=== PATIENT | female | born 1975 | race Asian ===

== ENCOUNTER → 2017-10-27 | Outpatient (CLI) | payer OTHER | END | disposition home or self-care (01) | LOC: CFH 14:52 | PROVIDERS: ATTEND Physician Assistant | DX: S83.522A Sprain of posterior cruciate ligament of left knee, initial encounter (principal); M25.462 Effusion, left knee; X58.XXXA Exposure to other specified factors, initial encounter; Y93.89 Activity, other specified; Y92.89 Other specified places as the place of occurrence of the external cause; Y99.8 Other external cause status ==

== ENCOUNTER → 2018-03-16 | Outpatient (CLI) | payer OTHER ==
[2018-03-16 09:00] LABS: CHOL/HDL RATIO 3.9; LDL/HDL RATIO 2.4 (0.5-3.0)
[2018-03-16 09:06] LABS: HEMOGLOBIN A1C 5.5 % (4.2-6.3)
== END | disposition home or self-care (01) ==
LOC: LAB 08:30
PROVIDERS: ATTEND Family Medicine
DX: Z13.1 Encounter for screening for diabetes mellitus (principal); Z13.220 Encounter for screening for lipoid disorders
CPT/HCPCS: 36415; 80061; 83036

== ENCOUNTER → 2020-06-10 | Outpatient (CLI) | payer OTHER | END | disposition home or self-care (01) | LOC: CFH 10:35 | PROVIDERS: ATTEND Family Medicine | DX: N63.22 Unspecified lump in the left breast, upper inner quadrant (principal) | CPT/HCPCS: 76642; 77062; 77066; G0279 ==

== ENCOUNTER 2020-06-14 07:03 | Outpatient (CLI) | payer OTHER ==
[2020-06-14] MEDS ORDERED: LIDOCAINE 1%-EPI 1:100K, 20ML ONE (07:30)
[2020-06-14] MEDS ORDERED: LIDOCAINE 1%, 20ML ONE (07:30)
== END 2020-06-14 23:59 | disposition home or self-care (01) ==
LOC: CFH 07:03
PROVIDERS: ATTEND Family Medicine
DX: N63.24 Unspecified lump in the left breast, lower inner quadrant (principal); C50.312 Malignant neoplasm of lower-inner quadrant of left female breast; Z17.1 Estrogen receptor negative status [ER-]
CPT/HCPCS: 19083; 19084; 77065; 88305; 88360; J3490

== ENCOUNTER → 2020-06-26 | Outpatient (CLI) | payer OTHER ==
[~2020-06-26] MED LIST: GADOTERATE 10 MMOL/20 ML VIAL ONE
== END | disposition home or self-care (01) ==
LOC: CFH 10:30
PROVIDERS: ATTEND Surgery
DX: C50.212 Malignant neoplasm of upper-inner quadrant of left female breast (principal); N63.22 Unspecified lump in the left breast, upper inner quadrant
CPT/HCPCS: 77049; A9575; C8908

== ENCOUNTER → 2020-07-04 | Outpatient (CLI) | payer OTHER ==
[~2020-07-04] MED LIST changes: +ASCO100018 PO; +CHOL10003 PO; -GADOTERATE 10 MMOL/20 ML VIAL ONE; +ONE A DAY MVT PO
== END | disposition home or self-care (01) ==
LOC: CVU 14:07
PROVIDERS: ATTEND Internal Medicine Hematology & Oncology
DX: I08.8 Other rheumatic multiple valve diseases (principal); C50.812 Malignant neoplasm of overlapping sites of left female breast
CPT/HCPCS: 93306; 93356

== ENCOUNTER → 2020-07-05 | Outpatient (CLI) | payer OTHER | END | disposition home or self-care (01) | LOC: STAR 09:18 | PROVIDERS: ATTEND Surgery | DX: Z20.822 Contact with and (suspected) exposure to COVID-19 (principal); C50.212 Malignant neoplasm of upper-inner quadrant of left female breast | CPT/HCPCS: 87635 ==

== ENCOUNTER → 2020-07-09 | Outpatient (CLI) | payer OTHER | END | disposition home or self-care (01) | LOC: PETCFH 07:38 | PROVIDERS: ATTEND Surgery | DX: C50.812 Malignant neoplasm of overlapping sites of left female breast (principal); R59.0 Localized enlarged lymph nodes | CPT/HCPCS: 78815; A9552 ==

== ENCOUNTER 2020-07-11 06:07 | Day surgery (SDC) | payer OTHER ==
[2020-07-05 09:37] VITALS: BP 92/60
[~2020-07-11] VITALS: Ht 154.9 cm; Wt 79.2 kg
[2020-07-11] MEDS ORDERED: BUPIVACAINE/PF 0.5% ONE (06:47)
[2020-07-11] MEDS ORDERED: EPINEPHRINE 1 MG/ML, 1ML ONE (06:47)
[2020-07-11] MEDS ORDERED: HEPARIN 1,000 UNITS/ML, 10ML ONE (06:47)
[2020-07-11 06:51] LABS: HCG UR SG 1.012 (1.003-1.030)
[2020-07-11] MEDS ORDERED: LACTATED RINGERS 1,000 ML IV SCH (07:00)
[2020-07-11] MEDS ORDERED: CHLORHEXIDINE 15 ML UDC MM ONE (07:00)
[2020-07-11] MEDS ORDERED: PROPOFOL 10 MG/ML, 20ML ONE (07:51)
[2020-07-11] MEDS ORDERED: KETOROLAC 30 MG/1 ML ONE (07:51)
[2020-07-11] MEDS ORDERED: DEXAMETHASONE 4 MG/ML, 1ML ONE (07:51)
[2020-07-11] MEDS ORDERED: CEFAZOLIN 1,000 MG ONE (07:51)
[2020-07-11] MEDS ORDERED: ACETAMINOPHEN 325 MG TABLET PO PRN (08:30)
[2020-07-11] MEDS ORDERED: hydrALAzine 20 MG/ML, 1ML IV PRN (08:30)
[2020-07-11] MEDS ORDERED: HYDROmorphone 1 MG/ML, 1ML INJ IVPush PRN (08:30)
[2020-07-11] MEDS ORDERED: OXYcodone 5 MG/5 ML ORAL.SOL UDC PO PRN (08:30)
[2020-07-11] MEDS ORDERED: LABETALOL 5MG/ML, 20ML IV PRN (08:30)
[2020-07-11] MEDS ORDERED: ONDANSETRON 2MG/ML, 2ML IVPush PRN (08:30)
[2020-07-11] MEDS ORDERED: MEPERIDINE/PF 25MG/0.5ML IVPush PRN (08:30)
[2020-07-11] MEDS ORDERED: FENTANYL PF 100 MCG/2ML IV PRN (08:30)
[2020-07-11] MEDS ORDERED: PROMETHAZINE 25 MG/ML, 1ML IVPush PRN (08:30)
[2020-07-11] MEDS ORDERED: HYDR-1067 PO (08:47)
[2020-07-11] MEDS ORDERED: ONDA4TAB7 PO (08:47)
== END 2020-07-11 10:15 | disposition home or self-care (01) ==
LOC: OUT 06:07
PROVIDERS: ATTEND Surgery
DX: Z45.2 Encounter for adjustment and management of vascular access device (principal); C50.212 Malignant neoplasm of upper-inner quadrant of left female breast; Z79.899 Other long term (current) drug therapy; Z82.49 Family history of ischemic heart disease and other diseases of the circulatory system
CPT/HCPCS: 36561; 71045; 76937; 77001; 81025; C1788; J0171; J0690; J1100; J1644; J1885; J2704; J7120

== ENCOUNTER 2020-07-12 07:15 | Outpatient (CLI) | payer OTHER ==
[~2020-07-12 07:15] MED LIST changes: +CEFAZOLIN 1,000 MG ONE; +DEXAMETHASONE 4 MG/ML, 5ML ONE; +FENTANYL PF 100 MCG/2ML ONE; +HYDR-1067 PO; +KETOROLAC 30 MG/1 ML ONE; +MIDAZOLAM 1 MG/ML, 2ML ONE; +ONDA4TAB7 PO; +ONDANSETRON 2MG/ML, 2ML ONE
[2020-07-12] MEDS ORDERED: LIDOCAINE 1%-EPI 1:100K, 20ML ONE (08:00)
== END 2020-07-12 23:59 | disposition home or self-care (01) ==
LOC: CFH 07:15
PROVIDERS: ATTEND Surgery
DX: R92.8 Other abnormal and inconclusive findings on diagnostic imaging of breast (principal); R59.9 Enlarged lymph nodes, unspecified; C77.3 Secondary and unspecified malignant neoplasm of axilla and upper limb lymph nodes; C50.912 Malignant neoplasm of unspecified site of left female breast
CPT/HCPCS: 10035; 38505; 76642; 88305; J0690; J1100; J1885; J2250; J2405; J3010; 19285; 76942

== ENCOUNTER → 2020-10-08 | Outpatient (CLI) | payer OTHER ==
[~2020-10-08] MED LIST changes: -CEFAZOLIN 1,000 MG ONE; -DEXAMETHASONE 4 MG/ML, 5ML ONE; -FENTANYL PF 100 MCG/2ML ONE; -HYDR-1067 PO; +HYDR-2214 PO; -KETOROLAC 30 MG/1 ML ONE; -MIDAZOLAM 1 MG/ML, 2ML ONE; -ONDANSETRON 2MG/ML, 2ML ONE
== END | disposition home or self-care (01) ==
LOC: CVU 08:18
PROVIDERS: ATTEND Internal Medicine Hematology & Oncology
DX: C50.812 Malignant neoplasm of overlapping sites of left female breast (principal); I34.0 Nonrheumatic mitral (valve) insufficiency
CPT/HCPCS: 93306

== ENCOUNTER → 2020-10-16 | Outpatient (CLI) | payer OTHER ==
[~2020-10-16] MED LIST changes: +GADOTERATE 7.5 MMOL/15 ML VIAL ONE
== END | disposition home or self-care (01) ==
LOC: CFH 12:23
PROVIDERS: ATTEND Surgery
DX: C50.212 Malignant neoplasm of upper-inner quadrant of left female breast (principal); R23.4 Changes in skin texture; R60.9 Edema, unspecified
CPT/HCPCS: 76642; 77049; 77061; 77065; A9575; C8908; G0279

== ENCOUNTER 2020-11-12 11:44 | Day surgery (SDC) | payer OTHER ==
[~2020-11-12] VITALS: Ht 160 cm; Wt 76.0 kg
[~2020-11-12 11:44] MED LIST changes: -GADOTERATE 7.5 MMOL/15 ML VIAL ONE
--- NOTE | 2020-11-12 12:58 | NUR ---
REG IN ED BY MISTAKE.
[2020-11-22] MEDS ORDERED: LORA-445 PO (11:05)
[2020-11-22] MEDS ORDERED: CHOL10003 PO (11:05)
[2020-11-22] MEDS ORDERED: FERR324T5 PO (11:05)
[2020-11-22] MEDS ORDERED: ONDA4TAB7 PO (11:05)
[2020-11-22] MEDS ORDERED: LOPE-114 PO (11:05)
[2020-11-28] MEDS ORDERED: CEFAZOLIN 1,000 MG ONE (07:18)
[2020-11-28] MEDS ORDERED: BUPIVACAINE/PF 0.5% ONE (07:18)
[2020-11-28] MEDS ORDERED: ISOSULFAN BLUE 10 MG/ML, 5ML IV ONE (07:19)
[2020-11-28] MEDS ORDERED: VANCOMYCIN 1,000 MG ONE (07:19)
[2020-11-28] MEDS ORDERED: GENTAMICIN 80 MG/2 ML ONE (07:19)
[2020-11-28] MEDS ORDERED: EPINEPHRINE 1 MG/ML, 1ML ONE (07:19)
[2020-11-28] MEDS ORDERED: DEXAMETHASONE 4 MG/ML, 1ML ONE (09:00)
[2020-11-28] MEDS ORDERED: NEOSTIGMINE 1 MG/ML, 10ML ONE (09:00)
[2020-11-28] MEDS ORDERED: PROPOFOL 10 MG/ML, 20ML ONE (09:00)
[2020-11-28] MEDS ORDERED: ROCURONIUM 10MG/ML,5ML ONE (09:00)
[2020-11-28] MEDS ORDERED: GLYCOPYRROLATE 0.2MG/1ML, 5ML ONE (09:00)
[2020-11-28 11:36] VITALS: BP 127/77
[2020-11-28] MEDS ORDERED: CHLORHEXIDINE 15 ML UDC ONE (11:40)
[2020-11-28 11:53] LABS: HCG UR SG 1.011 (1.003-1.030)
[2020-11-28] MEDS ORDERED: CHLORHEXIDINE 15 ML UDC PO ONE (12:00)
[2020-11-28] MEDS ORDERED: LACTATED RINGERS 1,000 ML IV SCH (12:00)
[2020-11-28 12:22] LABS: BASOPHILS % (AUTO) 0 % (0-1); EOSINOPHILS % (AUTO) 0 % (1-7); LYMPHOCYTES % (AUTO) 46 % (22-44); MEAN CORPUSCULAR HEMOGLOBIN 36.8 pg (27.0-34.8); MEAN CORPUSCULAR HGB CONC 34.1 g/dL (32.4-35.8); MEAN PLATELET VOLUME 6.9 fL (7.4-10.4); MONOCYTES % (AUTO) 9 % (2-9); NEUTROPHILS % (AUTO) 44 % (42-75); PLATELET COUNT 335 x10^3/uL (130-400); RED BLOOD COUNT 2.94 x10^6/uL (3.82-5.3); RED CELL DISTRIBUTION WIDTH 14.7 % (9.6-15.2)
[2020-11-28] MEDS ORDERED: FENTANYL PF 100 MCG/2ML ONE ×2 (14:09→16:15)
[2020-11-28] MEDS ORDERED: PROPOFOL 100 ML ONE ×2 (14:10→15:17)
[2020-11-28] MEDS ORDERED: MIDAZOLAM 1 MG/ML, 2ML ONE (14:10)
[2020-11-28] MEDS ORDERED: HYDROmorphone 1 MG/ML, 1ML INJ ONE (16:06)
[2020-11-28] MEDS ORDERED: HYDROmorphone 2 MG/ML, 1ML IVPush PRN (17:00)
[2020-11-28] MEDS ORDERED: ALBUTEROL SULFATE 2.5 MG/3 ML NPPB PRN (17:00)
[2020-11-28] MEDS ORDERED: DIAZEPAM 5 MG/ML, 2ML IVPush PRN (17:00)
[2020-11-28] MEDS ORDERED: PROMETHAZINE 25 MG/ML, 1ML IV PRN (17:00)
[2020-11-28] MEDS ORDERED: hydrALAzine 20 MG/ML, 1ML IV PRN (17:00)
[2020-11-28] MEDS ORDERED: OXYcodone 5 MG/5 ML ORAL.SOL UDC PO PRN (17:00)
[2020-11-28] MEDS ORDERED: ACETAMINOPHEN 325 MG TABLET PO PRN (17:00)
[2020-11-28] MEDS ORDERED: MEPERIDINE/PF 25MG/0.5ML IVPush PRN (17:00)
[2020-11-28] MEDS ORDERED: FENTANYL PF 100 MCG/2ML IV PRN (17:00)
[2020-11-28] MEDS ORDERED: KETOROLAC 30 MG/1 ML IV PRN (17:00)
[2020-11-28] MEDS ORDERED: LABETALOL 5MG/ML, 20ML IV PRN (17:00)
[2020-11-28] MEDS ORDERED: MEPERIDINE/PF 25MG/ML,1ML ONE (17:09)
== END 2020-11-28 19:20 | disposition home or self-care (01) ==
LOC: ORIP 11-28 10:36 → OUT 11-28 10:36 → UNDOADMIN 11-28 10:36 → EDSTATUS 11-28 14:30 → OUT 11-28 19:20 → UNDODISIN 11-28 19:20
PROVIDERS: ATTEND Surgery
DX: C50.212 Malignant neoplasm of upper-inner quadrant of left female breast (principal); Z17.1 Estrogen receptor negative status [ER-]; Z79.899 Other long term (current) drug therapy; Z80.3 Family history of malignant neoplasm of breast; Z80.41 Family history of malignant neoplasm of ovary
CPT/HCPCS: 15777; 19303; 19357; 36415; 38525; 38792; 76098; 81025; 85025; 88305; 88307; 88333; 88334; 99285; A9541; C1729; C1762; C1789; J0171; J0690; J1170; J1580; J2175; J2250; J2704; J3010; J3370; J7120; J1100; J2710

== ENCOUNTER → 2020-11-22 | Outpatient (CLI) | payer OTHER ==
[~2020-11-22] MED LIST changes: +FERR324T5 PO; +LOPE-114 PO; +LORA-445 PO
== END | disposition home or self-care (01) ==
LOC: STAR 10:02
PROVIDERS: ATTEND Surgery
DX: Z20.822 Contact with and (suspected) exposure to COVID-19 (principal); C50.212 Malignant neoplasm of upper-inner quadrant of left female breast
CPT/HCPCS: U0003; U0005

== ENCOUNTER → 2021-01-02 | Outpatient (CLI) | payer OTHER ==
[~2021-01-02] MED LIST changes: +CEPH750C9 PO
== END | disposition home or self-care (01) ==
LOC: ROC 07:07
PROVIDERS: ATTEND Radiology Radiation Oncology
DX: C50.212 Malignant neoplasm of upper-inner quadrant of left female breast (principal); E83.42 Hypomagnesemia; Z17.1 Estrogen receptor negative status [ER-]; Z79.899 Other long term (current) drug therapy
CPT/HCPCS: 99214; G0463

== ENCOUNTER → 2021-01-14 | Outpatient (CLI) | payer OTHER | END | disposition home or self-care (01) | LOC: LAB 13:29 | PROVIDERS: ATTEND Radiology Radiation Oncology | DX: Z32.00 Encounter for pregnancy test, result unknown (principal) | CPT/HCPCS: 36415; 84703 ==

== ENCOUNTER → 2021-01-16 | Outpatient (CLI) | payer OTHER | END | disposition home or self-care (01) | LOC: LAB 10:05 | PROVIDERS: ATTEND Radiology Radiation Oncology | DX: Z32.00 Encounter for pregnancy test, result unknown (principal) | CPT/HCPCS: 36415; 84702; 84703 ==

== ENCOUNTER → 2021-01-17 | Outpatient (CLI) | payer OTHER | END | disposition home or self-care (01) | LOC: LAB 11:44 | PROVIDERS: ATTEND Radiology Radiation Oncology | DX: Z32.00 Encounter for pregnancy test, result unknown (principal) | CPT/HCPCS: 36415; 84702 ==

== ENCOUNTER → 2021-01-20 | Outpatient (CLI) | payer OTHER | END | disposition home or self-care (01) | LOC: LAB 09:29 | PROVIDERS: ATTEND Radiology Radiation Oncology | DX: Z32.00 Encounter for pregnancy test, result unknown (principal) | CPT/HCPCS: 36415; 84702 ==